=== PATIENT | female | born 1980 | race Caucasian/White ===

== ENCOUNTER 2016-09-30 12:42 | Emergency (ER) | payer MEDICAID ==
[~2016-09-30] VITALS: Ht 172.7 cm; Wt 60.0 kg
[2016-09-30 12:45] VITALS: BP 143/88
== END 2016-09-30 13:46 | disposition home or self-care (01) ==
LOC: ED 13:44
DX: L29.9 Pruritus, unspecified (principal); F12.10 Cannabis abuse, uncomplicated
CPT/HCPCS: 99283